=== PATIENT | female | born 1970 | race African-American/Black ===

== ENCOUNTER 2020-12-08 22:37 | Inpatient (IN) | payer OTHER ==
[~2020-12-08] VITALS: Ht 172.7 cm; Wt 68.2 kg
[2020-12-08 22:41] VITALS: BP 132/77
[2020-12-08] MEDS ORDERED: AUBAGIO14 MG PO (22:49)
[2020-12-08] MEDS ORDERED: AMPYRA10 MG PO (22:49)
[2020-12-08] MEDS ORDERED: BACLOFEN 10MG T10 MG PO (22:50)
[2020-12-09 00:07] LABS: URINE BILIRUBIN NEGATIVE (Negative); URINE BLOOD NEGATIVE (Negative); URINE CLARITY CLEAR; URINE COLOR YELLOW; URINE GLUCOSE-RANDOM* NEGATIVE (Negative); URINE KETONES TRACE (Negative); URINE LEUKOCYTES-REFLEX NEGATIVE (Negative); URINE NITRITE-REFLEX NEGATIVE (Negative); URINE PROTEIN (DIPSTICK) NEGATIVE (Negative); URINE UROBILINOGEN 0.2 E.U./dl (0.2-1.0)
[2020-12-09 00:15] LABS: ABSOLUTE NEUTROPHILS 5.4 thou/uL (1.4-8.2); BASOPHILS 0.3 % (0.0-2.0); EOSINOPHILS 0.4 % (0.0-3.0); HEMATOCRIT 38.8 % (37.0-47.0); HEMOGLOBIN 12.8 gm/dL (12.0-15.0); LYMPHOCYTES 11.4 % (24.0-44.0); MCH 29.6 pg (26.0-34.0); MCV 89.7 fL (80.0-100.0); MONOCYTES 20.8 % (1.0-8.0); PLATELET COUNT 207 thou/uL (150-400); POLYS 67.1 % (36.0-66.0); RBC 4.33 mil/uL (4.20-5.00); RDW 15.1 % (10.5-14.5)
[2020-12-09 00:17] LABS: CALCIUM 8.4 mg/dL (8.5-10.1); CREATININE 0.7 mg/dL (0.6-1.0); POTASSIUM 3.3 mmol/L (3.5-5.1)
[2020-12-09 00:36] LABS: ALBUMIN 3.3 g/dL (3.4-5.0); TOTAL BILIRUBIN 0.7 mg/dL (0.2-1.0); TOTAL PROTEIN 6.8 g/dL (6.4-8.2)
[2020-12-09 03:11] VITALS: BP 114/68
--- NOTE | 2020-12-09 03:15 | NUR ---
ATTEMPTED TO CALL PT DAUGHTER GILDA AT PHONE NUMBER PROVIDED TO GIVE UPDATE. CALLED AT 01:27 & 03:13. PHONE WAS NOT ANSWERED, MESSAGE LEFT ON VOICEMAIL
[2020-12-09 04:10] VITALS: BP 99/66
--- NOTE | 2020-12-09 07:31 | NUR ---
Pt admitted from ED approx 0345 with diarrhea/weakness/ A/OX4,VSS. Pt up with AX1,GB/RW with limp gait.Verbalized feeling much better after IV fluids in ED. Denies pain on assessment. Skin intact. Cont of B&B.Special contact isolation initiated,awaiting cdiff results. Fall precautions in place, calls approp for help. Will continue to monitor pt.
[2020-12-09 08:24] VITALS: BP 107/68
[2020-12-09 18:09] VITALS: BP 118/71
--- NOTE | 2020-12-09 19:42 | NUR ---
Assumed pt care this am, VS stable . Maintained isolation for c-diff (confirmed) diet changed to full liquids. Had several bouts of diarrhea. POC followed with nos signs or verbalizations of distress noted. Endorsed to the night nurse.
[2020-12-09 20:30] VITALS: BP 124/74
--- NOTE | 2020-12-09 23:41 | NUR ---
ASSESSED AT START OF SHIFT. PT ON ISOLATION FROM C-DIFF. STATED HAD 5 BM DURING THE DAY. UP WITH ASSISTX1 TO THE BSC. FALL PREC IN PLACE. DENIES N/V AND PAIN WILL CONT TO MONITOR. REPORT GIVEN TO INCOMING RN.
--- NOTE | 2020-12-10 05:09 | NUR ---
UPON SHIFT REPORT, PT SLEEPING. PT SLEEPING THROUGHOUT SHIFT. PT RESTING WITHOUT INTERRUPTION OR OBSERVATION OF PAIN, DISCOMFORT, OR SOB, FLACC OF 0. PT REMAINS ON ROOM AIR WITHOUT DESATURATIONS. PT AMBULATING WITH STANDBY ASSIST TO BEDSIDE COMMODE, RESTING IN BED OTHERWISE, FREQUENT REPOSITIONING ENCOURAGED. PT NOTED TO SHIFT INDEPENDENTLY WHILE IN BED. PT ENCOURAGED TO NOTIFY STAFF FOR ALL NEEDS, CALL LIGHT WITHIN REACH, BED ALARM ON, BED LOCKED IN LOWEST POSITION, FREQUENT MONITORING WILL CONTINUE.
[2020-12-10 06:45] LABS: CALCIUM 8.3 mg/dL (8.5-10.1); CREATININE 0.7 mg/dL (0.6-1.0); POTASSIUM 3.4 mmol/L (3.5-5.1)
[2020-12-10 08:22] VITALS: BP 119/77
[2020-12-10] MEDS ORDERED: VANCOCIN 125 M125 M1 PO (11:20)
[2020-12-10 11:50] VITALS: BP 119/77
[2020-12-10 15:15] VITALS: BP 121/69
== END 2020-12-10 16:40 | disposition home or self-care (01) | DRG 372 ==
LOC: ER 22:37 → 4W 12-09 01:51 → EROBS 12-09 01:51 → 4W 12-09 03:35
PROVIDERS: Emergency Medicine; Nurse Practitioner Family; ADMIT Internal Medicine; ATTEND Internal Medicine
DX: A04.72 Enterocolitis due to Clostridium difficile, not specified as recurrent (principal); E44.1 Mild protein-calorie malnutrition; E87.6 Hypokalemia; G35 Multiple sclerosis; Z79.899 Other long term (current) drug therapy
CPT/HCPCS: 10040

== ENCOUNTER 2021-06-22 09:59 | Emergency (ER) | payer OTHER ==
[~2021-06-22] VITALS: Ht 172.7 cm; Wt 65.8 kg
[~2021-06-22 09:59] MED LIST: AMPYRA10 MG PO; AUBAGIO14 MG PO; BACLOFEN 10MG T10 MG PO; VANCOCIN 125 M125 M1 PO
[2021-06-22 12:48] VITALS: BP 141/96
== END 2021-06-22 12:49 | disposition home or self-care (01) ==
LOC: ER 09:59
DX: M54.50 Low back pain, unspecified (principal); M25.551 Pain in right hip; M25.511 Pain in right shoulder; G35 Multiple sclerosis; Z79.899 Other long term (current) drug therapy; V47.0XXA Car driver injured in collision with fixed or stationary object in nontraffic accident, initial encounter; Y93.89 Activity, other specified; Y92.89 Other specified places as the place of occurrence of the external cause; Y99.8 Other external cause status